=== PATIENT | female | born 1980 | race Caucasian/White ===

== ENCOUNTER 2017-04-02 14:33 | Emergency (ER) | payer MEDICAID ==
[2017-04-02 14:43] VITALS: RESP 16
[2017-04-02] MEDS ORDERED: HYDROCOD/APAP 5/325 PREPACK#6 BTL TAKEHOME ONE (16:09)
[2017-04-02] MEDS ORDERED: IBUPROFEN 800 MG TAB PO ONE (16:09)
[2017-04-02] MEDS ORDERED: HYDROCODONE/APAP 5/325 TAB PO ONE (16:09)
--- NOTE | 2017-04-02 16:13 | EDPHY ---
H & P Stated Complaint: Fell onto right shoulder - injury. Also left neck pain for 1 week. HPI/ROS: HPI CHIEF COMPLAINT: Right shoulder pain. Back pain. HISTORY OF PRESENT ILLNESS: This patient very pleasant 36-year-old female, denies any significant medical history does not take any daily medications she presents emergency room with right shoulder pain. Patient reports she was walking today and tripped. She had her right arm outstretched to grab onto a fence and over extended her right arm. She now has right lateral and right posterior shoulder pain. This is the main reason why she came to the emergency room additionally she reports for the past few weeks she has had some intermittent left scapula pain. The pain is at the bottom base of her left medial aspect of her scapula radiates up into her neck. It is worse with certain movements. Additionally it also hurts when you press. She states she had chiropractic manipulation last week did not really benefit her. She denies any injury to her back or shoulder. Past Medical History: Denies significant medical history Past Surgical History: Denies significant surgical history Social History: He denies daily use drugs alcohol tobacco products. Family History: Mary-Danlos syndrome with her mom. ROS REVIEW OF SYSTEMS: A comprehensive 10 point review of systems is otherwise negative aside from elements mentioned in the history of present illness. Exam Constitutional appears well nontoxic triage nursing summary reviewed, vital signs reviewed, awake/alert. Eyes normal conjunctivae and sclera, EOMI, PERRLA. HENT normal inspection, atraumatic, moist mucus membranes, no epistaxis, neck supple/ no meningismus, no raccoon eyes. Respiratory clear to auscultation bilaterally, normal breath sounds, no respiratory distress, no wheezing. Cardiovascular rate normal, regular rhythm, no murmur, no edema, distal pulses normal. Gastrointestinal soft, non-tender, no rebound, no guarding, normal bowel sounds, no distension, no pulsatile mass. Genitourinary no CVA tenderness. Musculoskeletal right upper extremity: Distally neurovascular intact good radial pulse. Good station agent strength. Good cap refill. Full range of motion. Axillary nerve intact. However has tenderness to palpation over the lateral right shoulder and posterior right shoulder. No obvious sign of trauma. Left posterior shoulder at the medial aspect base of the scapula there is mild tenderness palpation in the muscle. No obvious sign of trauma. Left arm is neurovascular intact full range of motion of the left arm. no midline vertebral tenderness, full range of motion, no calf swelling,, no meningismus, good pulses, neurovascularly intact. Skin pink, warm, & dry, no rash, skin atraumatic. Neurologic awake, alert and oriented x 3, AAOx3, moves all 4 extremities equally, motor intact, sensory intact, CN II-XII intact, normal cerebellar, normal vision, normal speech. Psychiatric normal mood/affect. Heme/Lymph/Immune no lymphadenopathy. Differential Diagnosis: Includes but is not limited to in a particular order right shoulder contusion, right shoulder strain, dislocated right shoulder, fracture of the right shoulder, rotator cuff injury., musculoskeletal strain Medical Decision Making: Plan for this patient x-ray two view with rib series of the left help delineate the left posterior scapula pain. Additionally right shoulder x-ray. Ibuprofen for pain control. [place] for pain control. Ice pack. Re-evaluation: 1806: X-rays have been reviewed of both the right shoulder and chest and rib series. There interpreted by myself. I do not appreciate any signs of fracture pneumothorax rib fracture shoulder fracture or dislocation. Unremarkable x-rays. 180: Clinically on exam the patient complains of right shoulder pain it is possible she has a rotator cuff injury or over extension injury. This patient be placed in a sling. Ice pack. Anti-inflammatory pain medicine and [place] for severe pain. She understands to make on outpatient follow-up appoint with Orthopedics. Additionally I have given her return precautions. She understands return emergency room if develops worsening pain fever vomiting questions or concerns. Source: Patient - Personal History LMP (Females 10-55): 1-7 Days Ago Current Tetanus Diphtheria and Acellular Pertussis (TDAP): Yes - Medical/Surgical History Hx Asthma: No Hx Chronic Respiratory Disease: No Hx Diabetes: No Hx Cardiac Disease: No Hx Renal Disease: No Hx Cirrhosis: No Hx Alcoholism: No Hx HIV/AIDS: No Hx Splenectomy or Spleen Trauma: No Other PMH: Migraines. - Social History Smoking Status: Never smoked Constitutional: Initial Vital Signs Temperature (C) 36.6 C 04/02/17 14:39 Heart Rate 66 04/02/17 14:39 Respiratory Rate 16 04/02/17 14:39 Blood Pressure 98/65 L 04/02/17 14:39 O2 Sat (%) 96 04/02/17 14:39 O2 Delivery Mode Room Air Allergies/Adverse Reactions: No Known Allergies Allergy (Unverified 04/02/17 14:43) Home Medications: Medication Instructions Recorded Hydrocodone/APAP 5/325 [[place] 1 - 2 tab PO Q4H PRN #10 tab 04/02/17 5/325] Ibuprofen [Motrin (*)] 800 mg PO Q6-8PRN #14 tab 04/02/17 Medical Decision Making - Data Points Medications Given: Discontinued Medications Hydrocodone Bitart/Acetaminophen ([place] 5/325mg Prepack#6) 1 btl TAKEHOME EDNOW ONE Stop: 04/02/17 16:10 Last Admin: 04/02/17 16:57 Dose: 1 btl Hydrocodone Bitart/Acetaminophen ([place] 5/325) 1 tab PO EDNOW ONE Stop: 04/02/17 16:10 Last Admin: 04/02/17 17:50 Dose: Not Given Ibuprofen (Motrin) 800 mg PO EDNOW ONE Stop: 04/02/17 16:10 Last Admin: 04/02/17 16:56 Dose: 800 mg Departure - Departure Disposition: Home, Routine, Self-Care Clinical Impression: Right shoulder strain Qualifiers: Encounter type: initial encounter Qualified Code(s): S46.911A - Strain of unspecified muscle, fascia and tendon at shoulder and upper arm level, right arm , initial encounter Condition: Good Instructions: Rotator Cuff Injury (ED) Additional Instructions: 1.Stay in your sling for comfort. 2. Ice her shoulder. 3. Take ibuprofen for mild pain. 4. [place] for severe pain. 5. Please follow up with Orthopedics. Please call their for follow-up appointment. Referrals: KATERIN GUARDADO [Primary Care Provider] - As per Instructions Malachi Watson MD [Medical Doctor] - As per Instructions Prescriptions: Hydrocodone/APAP 5/325 [[place] 5/325] 1 - 2 tab PO Q4H PRN #10 tab PRN Reason: Pain, Moderate Ibuprofen [Motrin (*)] 800 mg PO Q6-8PRN #14 tab
--- NOTE | 2017-04-02 16:13 | EDPHY ---
H & P Stated Complaint: Fell onto right shoulder - injury. Also left neck pain for 1 week. HPI/ROS: HPI CHIEF COMPLAINT: Right shoulder pain. Back pain. HISTORY OF PRESENT ILLNESS: This patient very pleasant 36-year-old female, denies any significant medical history does not take any daily medications she presents emergency room with right shoulder pain. Patient reports she was walking today and tripped. She had her right arm outstretched to grab onto a fence and over extended her right arm. She now has right lateral and right posterior shoulder pain. This is the main reason why she came to the emergency room additionally she reports for the past few weeks she has had some intermittent left scapula pain. The pain is at the bottom base of her left medial aspect of her scapula radiates up into her neck. It is worse with certain movements. Additionally it also hurts when you press. She states she had chiropractic manipulation last week did not really benefit her. She denies any injury to her back or shoulder. Past Medical History: Denies significant medical history Past Surgical History: Denies significant surgical history Social History: He denies daily use drugs alcohol tobacco products. Family History: Mary-Danlos syndrome with her mom. ROS REVIEW OF SYSTEMS: A comprehensive 10 point review of systems is otherwise negative aside from elements mentioned in the history of present illness. Exam Constitutional appears well nontoxic triage nursing summary reviewed, vital signs reviewed, awake/alert. Eyes normal conjunctivae and sclera, EOMI, PERRLA. HENT normal inspection, atraumatic, moist mucus membranes, no epistaxis, neck supple/ no meningismus, no raccoon eyes. Respiratory clear to auscultation bilaterally, normal breath sounds, no respiratory distress, no wheezing. Cardiovascular rate normal, regular rhythm, no murmur, no edema, distal pulses normal. Gastrointestinal soft, non-tender, no rebound, no guarding, normal bowel sounds, no distension, no pulsatile mass. Genitourinary no CVA tenderness. Musculoskeletal right upper extremity: Distally neurovascular intact good radial pulse. Good horticultural specialty grower strength. Good cap refill. Full range of motion. Axillary nerve intact. However has tenderness to palpation over the lateral right shoulder and posterior right shoulder. No obvious sign of trauma. Left posterior shoulder at the medial aspect base of the scapula there is mild tenderness palpation in the muscle. No obvious sign of trauma. Left arm is neurovascular intact full range of motion of the left arm. no midline vertebral tenderness, full range of motion, no calf swelling,, no meningismus, good pulses, neurovascularly intact. Skin pink, warm, & dry, no rash, skin atraumatic. Neurologic awake, alert and oriented x 3, AAOx3, moves all 4 extremities equally, motor intact, sensory intact, CN II-XII intact, normal cerebellar, normal vision, normal speech. Psychiatric normal mood/affect. Heme/Lymph/Immune no lymphadenopathy. Differential Diagnosis: Includes but is not limited to in a particular order right shoulder contusion, right shoulder strain, dislocated right shoulder, fracture of the right shoulder, rotator cuff injury., musculoskeletal strain Medical Decision Making: Plan for this patient x-ray two view with rib series of the left help delineate the left posterior scapula pain. Additionally right shoulder x-ray. Ibuprofen for pain control. [place] for pain control. Ice pack. Re-evaluation: 1806: X-rays have been reviewed of both the right shoulder and chest and rib series. There interpreted by myself. I do not appreciate any signs of fracture pneumothorax rib fracture shoulder fracture or dislocation. Unremarkable x-rays. 180: Clinically on exam the patient complains of right shoulder pain it is possible she has a rotator cuff injury or over extension injury. This patient be placed in a sling. Ice pack. Anti-inflammatory pain medicine and [place] for severe pain. She understands to make on outpatient follow-up appoint with Orthopedics. Additionally I have given her return precautions. She understands return emergency room if develops worsening pain fever vomiting questions or concerns. Source: Patient - Personal History LMP (Females 10-55): 1-7 Days Ago Current Tetanus Diphtheria and Acellular Pertussis (TDAP): Yes - Medical/Surgical History Hx Asthma: No Hx Chronic Respiratory Disease: No Hx Diabetes: No Hx Cardiac Disease: No Hx Renal Disease: No Hx Cirrhosis: No Hx Alcoholism: No Hx HIV/AIDS: No Hx Splenectomy or Spleen Trauma: No Other PMH: Migraines. - Social History Smoking Status: Never smoked Constitutional: Initial Vital Signs Temperature (C) 36.6 C 04/02/17 14:39 Heart Rate 66 04/02/17 14:39 Respiratory Rate 16 04/02/17 14:39 Blood Pressure 98/65 L 04/02/17 14:39 O2 Sat (%) 96 04/02/17 14:39 O2 Delivery Mode Room Air Allergies/Adverse Reactions: No Known Allergies Allergy (Unverified 04/02/17 14:43) Home Medications: Medication Instructions Recorded Hydrocodone/APAP 5/325 [[place] 1 - 2 tab PO Q4H PRN #10 tab 04/02/17 5/325] Ibuprofen [Motrin (*)] 800 mg PO Q6-8PRN #14 tab 04/02/17 Medical Decision Making - Data Points Medications Given: Discontinued Medications Hydrocodone Bitart/Acetaminophen ([place] 5/325mg Prepack#6) 1 btl TAKEHOME EDNOW ONE Stop: 04/02/17 16:10 Last Admin: 04/02/17 16:57 Dose: 1 btl Hydrocodone Bitart/Acetaminophen ([place] 5/325) 1 tab PO EDNOW ONE Stop: 04/02/17 16:10 Last Admin: 04/02/17 17:50 Dose: Not Given Ibuprofen (Motrin) 800 mg PO EDNOW ONE Stop: 04/02/17 16:10 Last Admin: 04/02/17 16:56 Dose: 800 mg Departure - Departure Disposition: Home, Routine, Self-Care Clinical Impression: Right shoulder strain Qualifiers: Encounter type: initial encounter Qualified Code(s): S46.911A - Strain of unspecified muscle, fascia and tendon at shoulder and upper arm level, right arm , initial encounter Condition: Good Instructions: Rotator Cuff Injury (ED) Additional Instructions: 1.Stay in your sling for comfort. 2. Ice her shoulder. 3. Take ibuprofen for mild pain. 4. [place] for severe pain. 5. Please follow up with Orthopedics. Please call their for follow-up appointment. Referrals: KATERIN GUARDADO [Primary Care Provider] - As per Instructions Malachi Watson MD [Medical Doctor] - As per Instructions Prescriptions: Hydrocodone/APAP 5/325 [[place] 5/325] 1 - 2 tab PO Q4H PRN #10 tab PRN Reason: Pain, Moderate Ibuprofen [Motrin (*)] 800 mg PO Q6-8PRN #14 tab
[2017-04-02 18:29] VITALS: BP 122/71; PULSE 69; TEMP 98.2; O2SAT 97
== END 2017-04-02 18:28 | disposition home or self-care (01) ==
DX: S46.911A Strain of unspecified muscle, fascia and tendon at shoulder and upper arm level, right arm, initial encounter (principal); W18.49XA Other slipping, tripping and stumbling without falling, initial encounter; Y99.8 Other external cause status
CPT/HCPCS: A4565

== ENCOUNTER 2017-05-17 13:35 | Emergency (ER) | payer MEDICAID ==
[2017-05-17 13:46] VITALS: RESP 16
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
[2017-05-17 15:40] LABS: ANION GAP 12 mEq/L (8-16); CALCIUM 9.5 mg/dL (8.5-10.4); CARBON DIOXIDE 22 mEq/l (22-31); CHLORIDE 109 mEq/L (97-110); CREATININE 0.7 mg/dL (0.6-1.0); GLOMERULAR FILTRATION RATE > 60; GLUCOSE 79 mg/dL (70-100); SODIUM 143 mEq/L (134-144)
[2017-05-17] MEDS ORDERED: IOPAMIDOL (ISOVUE 370) 100 ML BTL IV ONE (15:55)
[2017-05-17 16:34] VITALS: PULSE 71
[2017-05-17 17:23] VITALS: BP 109/64; TEMP 99; O2SAT 96
== END 2017-05-17 17:22 | disposition home or self-care (01) ==
DX: S16.1XXA Strain of muscle, fascia and tendon at neck level, initial encounter (principal); X58.XXXA Exposure to other specified factors, initial encounter
CPT/HCPCS: 96374; J1200; Q9967